=== PATIENT | female | born 1955 | race Caucasian/White ===

== ENCOUNTER → 2021-07-06 10:36 | Outpatient (BNVA) | payer OTHER, SELFPAY | PROVIDERS: PCP Student in an Organized Health Care Education/Training Program; Visit Provider Nurse Practitioner Family | DX: G47.9 Sleep disorder, unspecified (principal); R06.83 Snoring; R41.3 Other amnesia; R53.83 Other fatigue; Z79.899 Other long term (current) drug therapy | CPT/HCPCS: 99212 ==

== ENCOUNTER 2024-08-13 14:10 | Outpatient (REF) | payer OTHER, SELFPAY ==
--- OUTSIDE RECORDS SUMMARY | 2024-08-13 14:35 | XMS_ITS | Encounter Summary ---
Author Organization [employer] Address [address] [place] [address] 7 [place] [address] Care Team Providers Care Pulmonologist/Intensivist Name Role Phone Fabi Howard MD Primary Care Provider [phone] Reason for Visit * Reason Comments Med Refill Encounter Details Date Type Department Care Team ([facility] Contact Info) Description 04/07/2023 Refill [facility] [address] [place], [place] [phone] eLncho Jimenez MD [address] [place], [place] [phone] Social History Tobacco Use Types Packs/Day Years Used Date Smoking Tobacco: Never Assessed Comments Unknown Sex and Gender Information Value Date Recorded Sex Assigned at Female 04/22/2022 10:18 AM EDT Legal Sex Female 10:18 AM EDT Gender Identity Female 04/22/2022 10:18 AM EDT Sexual Orientation Straight 04/22/2022 10 :18 AM EDT documented as of this encounter Plan of Treatment Upcoming Encounters Date Type Department Care Team (Late Contact Info) Description 10/20/2024 10:45 AM EDT Office Visit [facility] [address] [place], [place] [phone] Fabi Howard MD [address] [place], [place] [phone] documented as of this encounter Visit Diagnoses Not on filedocumented in this encounter Care Teams Pulmonologist/Intensivist Relationship Specialty Start Date End Date Fabi Howard MD [address] [place] [id number] PCP - General Family Medicine 06/04/12 documented as of this encounter
--- OUTSIDE RECORDS SUMMARY | 2024-08-13 14:35 | XMS_ITS | Clinical Summary ---
Author Organization [facility] Address [address] [place] [address] Phone Care Team Providers Care School Bus Driver/Custodian Name Role Phone Fabi Howard MD Primary Care Provider [phone] Encounters Date Type Department Care Team Description 07/29/2024 2:47 PM EST - 07/29/2024 11:59 PM EST Hospital [facility]counter [facility] [address] [address] Encounter for screening mammogram for malignant neoplasm of breast Discharge Disposition: Home or Self Care from Last 3 Months Social History Tobacco Use Types Packs/Day Years Used Date Smoking Tobacco: Never Smokeless Tobacco: Never Alcohol Use Standard Drinks/Week Comments Never 0 (1 standard drink = 0.6 oz pur e alcohol) Comments No Sex and Gender Information Value Date Recorded Sex Assigned at Female 07/21/2024 10:26 AM EST Legal Sex Female 1:15 PM EST Gender Identity Female 07/21/2024 10:26 AM EST Sexual Orientation Straight 07/21/2024 10 :26 AM EST Obstetrics History Para Term AB IAB SAB Ectopic Multiple Livin g Live Births 5 Last Filed Vital Signs Vital Sign Reading Time Taken Comments Blood Pressure - - Pulse - - Temperature - - Respiratory Rate - - Oxygen Saturation - - Inhaled Oxygen Concentration - - Weight 55.3 kg (122 lb) 07/29/2024 2:54 PM EST Height 160 cm (5' 3 ) 07/29/2024 2:54 PM EST Body Mass Index 21.61 07/29/2024 2:54 PM EST Plan of Treatment Health Maintenance Due Date Last Done Comments DTaP,Tdap,and Td Vaccines (1 - Tdap) 01/22/1972 Pneumococcal Vaccine: 50+ Years (1 of 1 - PCV) 2003 Zoster Vaccines (1 of 2) 2003 Colorectal Cancer Screening: Colonoscopy 05/21/2022 Depression Screening 05/21/2022 Falls Risk Assessment 05/21/2022 Hepatitis C Screening 05/21/2022 Osteoporosis Screening (Bone Density Screening) 05/21/2022 Social Influencers of Health Screening 05/21/2022 COVID-19 Vaccine (1 - 2023-2 5 season) 2024 Influenza Vaccine (#1) 2024 Hypertension/CHF/CAD Annual BMP Blood Test 07/29/2024 Breast Cancer Screening 07/29/2026 07/29/19, 11/15/2020 Cholesterol Screening (Lipid Panel) 05/09/2027 05/09/2022 RSV Immunization Patients 60 + Years Old (1 - 1-dose 75+ series) 01/22/2028 HIB Vaccines Aged Out No longer eligi ble based on patient's age to complete this topic HPV Vaccines Aged Out No longer eligi ble based on patient's age to complete this topic Hepatitis A Vaccines Aged Out No long er eligible based on patient's age to complete this topic Hepatitis B Vaccines Aged Out No long er eligible based on patient's age to complete this topic IPV Vaccines Aged Out No longer eligi ble based on patient's age to complete this topic MMR Vaccines Aged Out No longer eligi ble based on patient's age to complete this topic Meningococcal ACWY Vaccine Aged Out N o longer eligible based on patient's age to complete this topic Meningococcal B Vacine Aged Out No lo nger eligible based on patient's age to complete this topic RSV Immunization Patients Under 20 months Aged Out No longer eligible b ased on patient's age to complete this topic Varicella Vaccines Aged Out No longer eligible based on patient's age to complete this topic Procedures Procedure Name Priority Date/Time Associated Diagnosis Comments MG MAMMO DIGITAL SCREENING W LM BILAT Routine 07/29/2024 3:04 PM EST Encounter for screening mammogram for malignant neoplasm of breast from Last 3 Months Results * MG Mammo Digital Screening w Lm bilat (07/29/2024 3:04 PM EST) Anatomical Region Laterality Modality Breast Bilateral Mammography 07/29/2024 3:35 PM EST Impressions 07/29/2024 3:40 PM EST No evidence of breast malignancy. BI-RADS CATEGORY: 1 - NEGATIVE RECOMMENDATION: Screening bilateral mammogram is recommended in 1 year. Mammo Location: [facility] , [address] [place] [address], [address], . -------- FINAL REPORT -------- Dictated By: Maranda Manjarrez Dictated Date: 07/29/2024 15:35 ET Assigned Physician: Maranda Manjarrez Reviewed and Electronically Signed By: Maranda Manjarrez Signed Date: 07/29/2024 15:40 ET Workstation ID: [id number] Transcribed By: Self Edit Transcribed Date: 07/29/2024 15:35 ET Narrative 07/29/2024 3:40 PM EST CLINICAL: 69 years old, Female, routine annual exam. COMPARISON: 11/15/2020 ?? TECHNIQUE: Bilateral MLO and CC views were obtained digitally with 3-D mammogram (digital breast tomosynthesis). Computer-aided detection was utilized in evaluation of this exam (CAD). FINDINGS: There is no evidence of suspicious mass or architectural distortion. ??No worrisome calcifications are evident. ??There has been no significant change from prior exam(s). ?? BREAST DENSITY: B - There are scattered areas of fibroglandular density. Procedure Note Maranda Manjarrez MD - 07/29/2024 CLINICAL: 69 years old, Female, routine annual exam. COMPARISON: 11/15/2020 TECHNIQUE: Bilateral MLO and CC views were obtained digitally with 3-Dmammogram (digital breast tomosynthesis). Computer-aided detection wasutilized in evaluation of this exam (CAD). FINDINGS: There is no evidence of suspicious mass or architectural distortion. Noworrisome calcifications are evident. There has been no significantchange from prior exam(s). BREAST DENSITY: B - There are scattered areas of fibroglandular density. IMPRESSION: No evidence of breast malignancy. BI-RADS CATEGORY: 1 - NEGATIVE RECOMMENDATION: Screening bilateral mammogram is recommended in 1 year. Mammo Location: [facility] , [address] [place] [address], [id number], . -------- FINAL REPORT -------- Dictated By: Maranda Manjarrez Dictated Date: 07/29/2024 15:35 ET Assigned Physician: Maranda Manjarrez Reviewed and Electronically Signed By: Maranda Manjarrez Signed Date: 07/29/2024 15:40 ET Workstation ID: [id number] Transcribed By: Self Edit Transcribed Date: 07/29/2024 15:35 ET Fabi Howard MD IMG BI PROCEDURES Final Result from Last 3 Months Insurance MEDICAID - [place] [facility] Member Subscriber Plan / Payer (Ef fective 2024-Present) Name:Daniela Ruby Relation to Subscriber:Self Name:Daniela Ruby Payer ID:[id number] Group ID:[id number] Type:Not on file Address: [address] [place] [address] Care Teams School Bus Driver/Custodian Relationship Specialty Start Date End Date Fabi Howard MD [address] [place] [address] PCP - General Family Medicine 07/21/24
--- OUTSIDE RECORDS SUMMARY | 2024-08-13 14:35 | XMS_ITS | Clinical Summary ---
Author Organization [employer] Address [address] [facility] 7t [place] [address] Care Team Providers Care Cutting Table Operator Name Role Phone Fabi Howard MD Primary Care Provider [phone] Allergies Active Allergy Reactions Criticality Noted Date Comments Metoprolol Nausea 07/16/2024 Medications ferrous gluconate (Fergon) 324 (38 Fe) MG tablet TAKE 1 TABLET POR VIA ORAL BEFORE BEDTIME 90 tablet 1 10/16/19 23 Active lisinopril 10 MG tablet Take 1 tablet by mouth at bed time. 07/24/19 21 Active [facility] Oyster Shell Calcium-Vit D 500-3.125 MG-MCG tablet TOME KAYLAH TABLETA TODOS [place] PADILLA EN LA MANANA 90 tablet 3 04/16/20 23 Active meclizine (Antivert) 12.5 MG tabletIndicati ons:Vertigo TOME KAYLAH TABLETA TODOS [place] 90 tablet 3 09/12/19 24 Active omeprazole (PriLOSEC) [address] capsule TAKE 1 CAPSULE BY MOUTH BEFORE A MEAL 90 capsule 1 03/23/20 24 Active aspirin (Aspirin Low Dose) 81 MG EC tablet TAKE 1 TABLET BY MOUTH EVERY DAY 90 tablet 1 05/19/20 24 Active atenolol (Tenormin) 25 MG tablet Take 1 tablet (25 mg) by mouth Once per day. 90 tablet 3 07/16/19 25 026 Active ibuprofen 600 MG tablet TOME KAYLAH TABLETA ANNIE VECES AL DIANA CUANDO SEA NECESARIO PARA DOLOR 90 tablet 1 08/13/19 25 Active metoprolol succinate XL (Toprol XL) 50 MG 24 hr tablet Take 1 tablet (50 mg) by mouth Once per day. Do not crush or chew. 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 ) 06/21/2024 Refill [facility] [address] [place] [address] Fabi Howard MD 06/18/2024 Telephone [facility] [address] [place] [address] Fabi Howard MD no show 06/11/2024 11:15 AM EST Office Visit [facility] [address] [place] [address] Patricia Culver MD Primary hypertension (Primary Dx); Impacted cerumen of right ear 06/11/2024 Travel 06/10/2024 Telephone [facility] [address] [place] [address] Fabi Howard MD Nurse Triage 05/19/2024 Refill [facility] [address] [place] [address] Fabi Howard MD from Last 3 Months Social History Tobacco Use Types Packs/Day Years Used Date Smoking Tobacco: Never Passive Smoke Exposure: Never Smokeless Tobacco: Never Tobacco Cessation:Counseling Given: Not Answered Alcohol Use Standard Drinks/Week Comments Never 0 (1 standard drink = 0.6 oz pur e alcohol) Housing Stability Answer Date Recorded What is your housing situation today? I have kranthi lang 07/07/[address] you li ve. Do you have problems with any of the following? None of the above 07/07/2024 Food Insecurity Answer Date Recorded Within the past 12 months, y ou worried that your food would run out before you got money to buy more: Never True 07/07/2024 Within the past 12 months,th e food you bought just didn't last and you didn't have enough money to get more: Never True Transportation Answer Date Recorded In the past 12 months, has l ack of transportation kept you from medical appts, meetings, work or from getting things needed for daily living? No 07/07/2024 Utilities Answer Date Recorded In the past 12 months, has t he electric, gas, oil or water company threatened to shut off services in your home? No 07/07/2024 Internet Access Answer Date Recorded Internet Access Q1 Yes 07/07/2024 Internet Access Q2 Not on file 07/07/2024 Comments Unknown Sex and Gender Information Value Date Recorded Sex Assigned at Female 04/22/2022 10:18 AM EDT Legal Sex Female 10:18 AM EDT Gender Identity Female 04/22/2022 10:18 AM EDT Sexual Orientation Straight 04/22/2022 10 :18 AM EDT Last Filed Vital Signs Vital Sign Reading Time Taken Comments Blood Pressure 180/80 06/11/2024 11:24 AM EST Pulse 74 06/11/2024 11:24 AM EST Temperature 37.1 ??C (98.7 ??F) 06/11/2024 11:[address] Respiratory Rate 16 06/11/2024 11:24 AM EST Oxygen Saturation 98% 06/11/2024 11:24 AM EST Inhaled Oxygen Concentration - - Weight 56.7 kg (125 lb) 06/11/2024 11:24 AM EST Height 154.9 cm (5' 1 ) 06/11/2024 11:24 AM EST Body Mass Index 23.62 06/11/2024 11:24 AM EST Plan of Treatment Upcoming Encounters Date Type Department Care Team (Late st Contact Info) Description 10/20/2024 10:45 AM EDT Office Visit [facility] [address] [facility] [place] [address] Fabi Howard MD [address] [place] [address] Health Maintenance Due Date Last Done Comments CT Colonography 1953 Depression Screening 1953 FIT 1953 FOBT 1955 Sigmoidoscopy 1955 Hepatitis C Screening 1971 DTaP/Tdap/Td Vaccines (1 - Tdap) 01/22/1972 Pneumococcal Vaccine: 50+ Years (1 of 1 - PCV) 2003 Zoster Vaccines (1 of 2) 2003 Colonoscopy 01/29/2023 01/29/2013 COVID-19 Vaccine (1 - 2023-2 5 season) 2024 Influenza Vaccine (#1) 2024 Tobacco Screening 06/11/2025 06/11/2024 SDOH Screening 07/07/2025 07/07/2024 Alcohol/Substance Use Screening 07/16/2025 07/16/2024 Mammogram 07/29/2026 07/29/2024 Lipid Panel 05/09/2027 05/09/2022, 06/06/2021 Colorectal Cancer Screening 07/28/2027 FIT DNA/Cologuard 07/28/2027 07/28/2024 RSV Patients and Patients Aged 60 years or older (1 - 1-dose 75+ series) 01/22/2028 HIB [...] patient's age to complete this topic Meningococcal Vaccine Aged Out No felicia kj eligible based on patient's age to complete this topic RSV under 20 months Aged Out No longe r eligible based on patient's age to complete this topic Rotavirus Vaccines Aged Out No longer eligible based on patient's age to complete this topic Procedures Procedure Name Priority Date/Time Associated Diagnosis Comments BI MAMMOGRAM SCREENING TOMOSYNTHESIS BILATERAL Routine 07/29/2024 Encounter for screening mammogram for breast cancer LAB COLOGUARD?? COLON CANCER SCREEN Routine 07/28/2024 2:50 PM EST Encounter for screening for malignant neoplasm of colon LIPID PANEL, STANDARD Routine 05/09/2022 11:34 AM EST HM COLONOSCOPY Routine 01/29/2013 from Last 3 Months or Most Recently Relevant to Health Maintenance Results * BI Mammogram Screening Tomosynthesis Bilateral (07/29/2024) Anatomical Region Laterality Modality Breast Bilateral Mammography Fabi Howard MD [facility] [place]EDURES Final Result * Cologuard?? colon cancer screening (07/28/2024 2:50 PM EST) Cologuard Result Negative Negative 08/07/19 12:03 PM EST [employer] (CLIA #:[id number]) Comment: NEGATIVE TEST RESULT. A negative Cologuard result indicates a low likelihood that a colorectal cancer (CRC) or advanced adenoma (adenomatous polyps with more advanced pre-malignant features) ??is present. The chance that a person with a negative Cologuard test has a colorectal cancer is less than 1 in 1500 (negative predictive value >99.9%) or has an ??advanced adenoma is less than ??5.3% (negative predictive value 94.7%). These data are based on a prospective cross-sectional study of 10,000 individuals at average risk for colorectal cancer who were screened with both Cologuard and colonoscopy. (Ho Pollard al, N Engl J Med 2014;370(14):1286- 1297) The normal value (reference range) for this assay is negative. COLOGUARD RE-SCREENING RECOMMENDATION: Periodic colorectal cancer screening is an important part of preventive healthcare for asymptomatic individuals at average risk for colorectal cancer. ??Following a negative Cologuard result, the [place] [employer] Society and U.S. Multi-Society Task Force screening guidelines recommend a Cologuard re-screening interval of 3 years. References: [place] [employer] Guideline for Colorectal Cancer Screening: https://www.cancer.org/cancer/tbmca-eqyrkh-wgrhje/oumlkxgix-aodsbhauh-ybmhlut/ac s-rec ommendations.html.; Eddie DK, Marcelle CR, Laurel AlfaroK, Colorectal Cancer Screening: Recommendations for Physicians and Patients from the U.S. Multi-Society Task Force on Colorectal Cancer Screening , Am J Gastroenterology 2017; 112:1783-1875. TEST DESCRIPTION: Composite algorithmic analysis of stool DNA-biomarkers with hemoglobin immunoassay. ?? Quantitative values of individual biomarkers are not reportable and are not associated with individual biomarker result reference ranges. Cologuard is intended for colorectal cancer screening of adults of either sex, 45 years or older, who are at average-risk for colorectal cancer (CRC). Cologuard has been approved for use by the U.S. FDA. The performance of Cologuard was established in a cross sectional study of average-risk adults aged 50-84. Cologuard performance in patients ages 45 to 49 years was estimated by sub-group analysis of near-age groups. Colonoscopies performed for a positive result may find as the most clinically significant lesion: colorectal cancer [4.0%], advanced adenoma (including sessile serrated polyps greater than or equal to 1cm diameter) [20%] or non- advanced adenoma [31%]; or no colorectal neoplasia [45%]. These estimates are derived from a prospective cross-sectional screening study of 10,000 individuals at average risk for colorectal cancer who were screened with both Cologuard and colonoscopy. (Ho Pollard al, N Engl J Med 2014;370(14):7859-7975.) Cologuard may produce a false negative or false positive result (no colorectal cancer or precancerous polyp present at colonoscopy follow up). A negative Cologuard test result does not guarantee the absence of CRC or advanced adenoma (pre-cancer). The current Cologuard screening interval is every 3 years. ([place] [employer] and U.S. Multi-Society Task Force). Cologuard performance data in a 10,000 patient pivotal study using colonoscopy as the reference method can be accessed at the following location: www.[employer] Expert.[employer]/results. Additional description of the Cologuard test process, warnings and precautions can be found at www.L[employer] Reward[employer] Managementrd.[employer]. Stool specimen (specimen) 07/28/2024 2:50 PM EST 07/30/2024 11:13 AM EST Fabi Howard MD LAB MOLECULAR DIAGNOSTICS ORDERA BLESmitha Final Result [employer] [facility] (CLIA #:[id number]) [address] [place] [address], * (ABNORMAL) LIPID PANEL, STANDARD (05/09/2022 11:34 AM EST) Chol/HDLC Ratio 2.9 <5.0 (calc) CONVERTED LEGACY LABS Cholesterol, Total 235(H) <200 mg/dL CONVERTED [facility] HDL Cholesterol 80 > OR = 50 mg/dL [facility] LDL Cholesterol 136(H) mg/dL (calc) [facility] Comment: Reference range: <100 ?? Desirable range <100 mg/dL for primary prevention; ?? <70 mg/dL for patients with CHD or diabetic patients ?? with > or = 2 CHD risk factors. ?? LDL-C is now calculated using the Douglas ?? calculation, which is a validated novel method providing ?? better accuracy than the Friedewald equation in the ?? estimation of LDL-C. ?? Gage DRIVER et al. DELIA. 2013;310(19): 9148-3845 ?? (http://education.Zooomr.[employer]/faq/SRK224) Non-HDL Cholesterol 155(H) <130 mg/dL (calc) CONVERT[facility]GAC[facility] Comment: For patients with diabetes plus 1 major ASCVD risk ?? factor, treating to a non-HDL-C goal of <100 mg/dL ?? (LDL-C of <70 mg/dL) is considered a therapeutic ?? option. Triglycerides 86 <150 mg/dL CONVE RTED LEGACY LABS 05/09/2022 11:3 4 AM EST Fabi Howard MD LAB BLOOD ORDERABLES Final Resul t CONVERTED LEGACY LABS * Hm Colonoscopy (01/29/2013) Colonoscopy Normal Normal Historical Provider HEALTH MAINTENANCE Final Result from Last 3 Months or Most Recently Relevant to Health Maintenance [place] [address] - [employer] Care Teams Cutting Table Operator Relationship Specialty Start Date End Date Fabi Howard MD [address] [place] [id number] PCP - General Family Medicine 06/04/12
--- OUTSIDE RECORDS SUMMARY | 2024-08-13 14:35 | XMS_ITS | Encounter Summary ---
Author Organization [facility] Address [address] [place] [address] Care Team Providers Care Lecturer In Computer Science Name Role Phone Fabi Howard MD Primary Care Provider Reason for Referral * Imaging (Routine) - Pending Review Specialty Diagnoses / Procedures Referred By Mac george Referred To Contact Radiology Diagnoses Encounter for screening mammogram for malignant neoplasm of breast Procedures MG Mammo Digital Screening w Fabi Clifton MD [address] [place] [address] Phone: tel: fax: [address] [address] Phone: tel: Referral ID Status Reason Start Date Expiration Date V isits Requested Visits Authorized [id number] Pending Review 07/18/2024 07/18/2025 1 1 Reason for Visit * Imaging (Routine) - Pending Review Specialty Diagnoses / Procedures Referred By Mac george Referred To Contact Radiology Diagnoses Encounter for screening mammogram for malignant neoplasm of breast Procedures MG Mammo Digital Screening w Fabi Clifton MD [address] [place] [address] Phone: tel: fax: [address] [address] Phone: tel: Referral ID Status Reason Start Date Expiration Date V isits Requested Visits Authorized [id number] Pending Review 07/18/2024 07/18/2025 1 1 Encounter Details Date Type Department Care Team (Latest Contact Info) Description 07/29/2024 2:47 PM EST - 07/29/2024 11:59 PM EST Hospital Encounter [facility] [address] [place] [address] Encounter for screening mammogram for malignant neoplasm of breast Discharge Disposition: Home or Self Care Social History Tobacco Use Types Packs/Day Years [...] Orientation Straight 07/21/2024 10 :26 AM EST documented as of this encounter Last Filed Vital Signs Vital Sign Reading Time Taken Comments Blood Pressure - - Pulse - - Temperature - - Respiratory Rate - - Oxygen Saturation - - Inhaled Oxygen Concentration - - Weight 55.3 kg (122 lb) 07/29/2024 2:54 PM EST Height 160 cm (5' 3 ) 07/29/2024 2:54 PM EST Body Mass Index 21.61 07/29/2024 2:54 PM EST documented in this encounter Discharge Disposition Disposition Code Departure Means Destination Home or Self Care documented in this encounter Plan of Treatment Not on file documented as of this encounter Procedures Procedure Name Priority Date/Time Associated Diagnosis Comments MG MAMMO DIGITAL SCREENING W LM BILAT Routine 07/29/2024 3:04 PM EST Encounter for screening mammogram for malignant neoplasm of breast documented in this encounter Results * MG Mammo Digital Screening w Lm bilat (07/29/2024 3:04 PM EST) Anatomical Region Laterality Modality Breast Bilateral Mammography 07/29/2024 3:35 PM EST Impressions 07/29/2024 3:40 PM EST No evidence of breast malignancy. BI-RADS CATEGORY: 1 - NEGATIVE RECOMMENDATION: Screening bilateral mammogram is recommended in 1 year. Mammo Location: [facility], [address] [place], [place], [address], . -------- FINAL REPORT -------- Dictated By: Maranda Manjarrez Dictated Date: 07/29/2024 15:35 ET Assigned Physician: Maranda Manjarrez Reviewed and Electronically Signed By: Maranda Manjarrez Signed Date: 07/29/2024 15:40 ET Workstation ID: [id number] Transcribed By: Self Edit Transcribed Date: 07/29/2024 [...] year. Mammo Location: [facility], [address] [place] [address], [id number], . -------- FINAL REPORT -------- Dictated By: Maranda Manjarrez Dictated Date: 07/29/2024 15:35 ET Assigned Physician: Maranda Manjarrez Reviewed and Electronically Signed By: Maranda Manjarrez Signed Date: 07/29/2024 15:40 ET Workstation ID: [id number] Transcribed By: Self Edit Transcribed Date: 07/29/2024 15:35 ET Fabi Howard MD IMG BI PROCEDURES Final Result documented in this encounter Visit Diagnoses Diagnosis Encounter for screening mammogram for malignant neoplasm of breast documented in this encounter Care Teams Lecturer In Computer Science Relationship Specialty Start Date End Date Fabi Howard MD [address] [place] [address] PCP - General Family Medicine 07/21/24 documented as of this encounter
--- OUTSIDE RECORDS SUMMARY | 2024-08-13 14:35 | XMS_ITS | Encounter Summary ---
Author Organization [employer] Address [address] [facility] 7t [place] [address] Care Team Providers Care Cushion Filler Name Role Phone Fabi Howard MD Primary Care Provider [phone] Reason for Visit * Reason Comments Med Refill Encounter Details Date Type Department Care Team ([facility] st Contact Info) Description 08/13/2024 Refill [facility] MED & PEDS [address] [place], [place] [phone] Enriqueta Rneteria FNP [address] [place], [place] [phone] Social History Tobacco Use Types Packs/Day Years Used Date Smoking Tobacco: Never Passive Smoke Exposure: Never Smokeless Tobacco: Never Alcohol Use Standard [...] Description 10/20/2024 10:45 AM EDT Office Visit [facility] MED & PEDS [address] [place] [address] Fabi Howard MD [address] [place] [address] documented as of this encounter Visit Diagnoses Not on filedocumented in this encounter Care Teams Cushion Filler Relationship Specialty Start Date End Date Fabi Howard MD [address] [place] [address] PCP - General Family Medicine 06/04/12 documented as of this encounter
--- OUTSIDE RECORDS SUMMARY | 2024-08-13 14:35 | XMS_ITS | Encounter Summary ---
Author Organization [employer] Address [address] [facility] 7t [place] [address] Care Team Providers Care Forging Operator Name Role Phone Fabi Howard MD Primary Care Provider [phone] Encounter Details Date Type Department Care Team (Latest Contact Info) Description 07/15/2024 Travel Social History Tobacco Use Types Packs/Day Years Used Date Smoking Tobacco: Never Passive Smoke Exposure: Never Smokeless Tobacco: Never Alcohol Use Standard Drinks/Week Comments Never 0 (1 standard drink = 0.6 oz pur e alcohol) Housing Stability Answer Date Recorded What is your housing situation today? I have kranthisahil lang 07/07/[address] you [...] Description 10/20/2024 10:45 AM EDT Office Visit [facility] MED & PEDS [address] [place] [address] Fabi Howard MD [address] [place] [address] documented as of this encounter Visit Diagnoses Not on filedocumented in this encounter Care Teams Forging Operator Relationship Specialty Start Date End Date Fabi Howard MD [address] [place] [address] PCP - General Family Medicine 06/04/12 documented as of this encounter
--- OUTSIDE RECORDS SUMMARY | 2024-08-13 14:35 | XMS_ITS | Encounter Summary ---
Author Organization [facility] Address [address] [facility] 7t [place] [address] Care Team Providers Care Wooden Boat Builder Name Role Phone Fabi Howard MD Primary Care Provider [phone] Encounter Details Date Type Department Care Team (Late st Contact Info) Description 12/25/2022 Orders Only [facility] MED & PEDS [address] [place] [address] Marcy Mceknzie LPN Social History Tobacco Use Types Packs/Day Years [...] Description 10/20/2024 10:45 AM EDT Office Visit [facility] MED [facility] PED[facility] [address] [place] [address] Fabi Howard MD [address] [place] [address] documented as of this encounter Visit Diagnoses Not on filedocumented in this encounter Care Teams Wooden Boat Builder Relationship Specialty Start Date End Date Fabi Howard MD [address] [place] [address] PCP - General Family Medicine 06/04/12 documented as of this encounter
--- OUTSIDE RECORDS SUMMARY | 2024-08-13 14:35 | XMS_ITS | Encounter Summary ---
Author Organization [employer] Address [address] [facility] 7t [place] [address] Care Team Providers Care Product Management Intern Name Role Phone Fabi Howard MD Primary Care Provider [phone] Reason for Referral * Imaging (Routine) - Closed Specialty Diagnoses / Procedures Referred By Contsoraya t Referred To Contact Radiology Diagnoses Encounter for screening mammogram for breast cancer Procedures BI Mammogram Screening Tomosynthesis Bilateral Fabi Howard MD [address] [place] [address] Phone: tel: fax: [address] Phone: tel: fax: Referral ID Status Reason Start Date Expiration Date Visits Re quested Visits Authorized [id number] Closed 07/16/2024 07/16/2025 1 1 Reason for Visit * Reason Comments Hypertension Encounter Details Date Type Department Care Team (Late st Contact Info) Description 07/16/2024 11:15 AM EST Telemedicine [facility] CHC MED & PEDS [address] [place] [address] Fabi Howard MD [address] [place], [place] [phone] Primary hypertension (Primary Dx); Encounter for screening for malignant neoplasm of colon; Encounter for screening mammogram for breast cancer Social History Tobacco Use Types Packs/Day Years [...] AM EDT documented as of this encounter Progress Notes * Fabi Howard MD - 07/16/2024 11:15 AM EST Subjective Patient ID: Daniela Ruby is a 69 y.o. female who presents for Hypertension. Hypertension This is a chronic problem. The current episode started more than 1 year ago. The problem is unchanged. The problem is controlled. Pertinent negatives include no anxiety, blurred vision, chest pain, headaches, malaise/fatigue, neck pain, orthopnea, palpitations, peripheral edema, PND, shortness of breath or sweats. Review of Systems Constitutional: Negative for malaise/fatigue. Eyes: Negative for blurred vision. Respiratory: Negative for shortness of breath. Cardiovascular: Negative for chest pain, palpitations, orthopnea and PND. Musculoskeletal: Negative for neck pain. Neurological: Negative for headaches. Objective Physical Exam Psychiatric: Mood and Affect: Mood normal. Behavior: Behavior normal. Thought Content: Thought content normal. Judgment: Judgment normal. Assessment/Plan Diagnoses and all orders for this visit: Primary hypertension Comments: Stable Checks daily at home D/C metoprolol due to side effects Switched to Atenolol Maintain a low-sodium diet (less than 2 grams per day). Maintain a regular cardiovascular exercise program. Advised to maintain a low-fat, low-cholesterol diet. Counseled regarding importance of weight loss. Counseled re: potential co-morbidities including cardiovascular disease. Orders: - Basic Metabolic Panel; Future - Lipid Panel, Standard; Future - Hepatic Function Panel; Future Encounter for screening for malignant neoplasm of colon - Cologuard?? colon cancer screening Encounter for screening mammogram for breast cancer - BI Mammogram Screening Tomosynthesis Bilateral; Future Other orders - atenolol (Tenormin) 25 MG tablet; Take 1 tablet (25 mg) by mouth Once per day. documented in this encounter Plan of Treatment Upcoming Encounters Date Type Department Care Team (Late st Contact Info) Description 10/20/2024 10:45 AM EDT Office Visit [facility] CHC MED & PEDS [address] [place] [address] Fabi Howard MD [address] [place] [address] Scheduled Orders Name Type Priority Associated Diagnoses Orde r Schedule Basic Metabolic Panel Lab Routine Primary hypertension Expected: 07/16/2024 (Approximate), Expires: 07/16/2025 Lipid Panel, Standard Lab Routine Primary hypertension Expected: 07/16/2024 (Approximate), Expires: 07/16/2025 Hepatic Function Panel Lab Routine Primary hypertension Expected: 07/16/2024 (Approximate), Expires: 07/16/2025 documented as of this encounter Procedures Procedure Name Priority Date/Time Associated Diagnosis Comments BI MAMMOGRAM SCREENING TOMOSYNTHESIS BILATERAL Routine 07/29/2024 Encounter for screening mammogram for breast cancer LAB COLOGUARD?? COLON CANCER SCREEN Routine 07/28/2024 2:50 PM EST Encounter for screening for malignant neoplasm of colon documented in this encounter Results * BI Mammogram Screening Tomosynthesis Bilateral (07/29/2024) Anatomical Region Laterality Modality Breast Bilateral Mammography Fabi Howard MD IM BI PROCEDURES Final Result * Cologuard?? colon cancer screening (07/28/2024 2:50 PM EST) Cologuard Result Negative Negative 08/07/19 12:03 PM EST [employer] (CLIA #:[id number]) Comment: NEGATIVE TEST RESULT. A negative Cologuard [...] were screened with both Cologuard and colonoscopy. (Imperialrobert T. et al, N Engl J Med 2014;370(14):1286- 1297) The normal value (reference range) for this assay is negative. COLOGUARD RE-SCREENING RECOMMENDATION: Periodic colorectal cancer screening is an important part of preventive healthcare for asymptomatic individuals at average risk for colorectal cancer. ??Following a negative Cologuard result, the [place] [employer] and U.S. Multi-Society Task Force screening guidelines recommend a Cologuard re-screening interval of 3 years. References: [place] [employer] Guideline for Colorectal Cancer Screening: https://www.cancer.org/cancer/fymvd-wwprkw-nrztpr/ciamwlwor-nvjzfzcvi-dtpeszk/ac s-rec ommendations.html.; Eddie MARTINES, Marcelle CASTRO, Laurel STOVER, Colorectal Cancer Screening: Recommendations for Physicians and Patients from the U.S. Multi-Society Task Force on Colorectal Cancer Screening , Am J Gastroenterology 2017; 112:8746-2793. TEST DESCRIPTION: Composite algorithmic analysis of stool [...] screened with both Cologuard and colonoscopy. (Ho Hernández et al, N Engl J Med 2014;370(14):5447-3011.) Cologuard may produce a false negative or false positive result (no colorectal cancer or precancerous polyp present at colonoscopy follow up). A negative Cologuard test result does not guarantee the absence of CRC or advanced adenoma (pre-cancer). The current Cologuard screening interval is every 3 years. ([place] [employer] Society and U.S. Multi-Society Task Force). Cologuard performance data in a 10,000 patient pivotal study using colonoscopy as the reference method can be accessed at the following location: www.Jukely/results. Additional description of the Cologuard test process, warnings and precautions can be found at www.Brandsclubrd.com. Stool specimen (specimen) 07/28/2024 2:50 PM EST 07/30/2024 11:13 AM EST us Fabi Howard MD LAB MOLECULAR DIAGNOSTICS [facility] Final Result [facility] (CLIA #:[id number]) [place] [address], documented in this encounter Visit Diagnoses Diagnosis Primary hypertension- Primary Unspecified essential hypertension Encounter for screening for malignant neoplasm of colon Encounter for screening mammogram for breast cancer documented in this encounter Care Teams Product Management Intern Relationship Specialty Start Date End Date Fabi Howard MD [address] [place] [address] PCP - General Family Medicine 06/04/12 documented as of this encounter
--- OUTSIDE RECORDS SUMMARY | 2024-08-13 14:35 | XMS_ITS | Encounter Summary ---
Author Organization [facility] Address [address] [facility] 7t [place] [address] Care Team Providers Care Box Feeder Name Role Phone Fabi Howard MD Primary Care Provider Reason for Visit * Reason Comments Med Change Request Encounter Details Date Type Department Care Team (Late Contact Info) Description 04/17/2023 Refill [facility] MED & PEDS [address] [place] [address] Fabi Howard MD [address] [place] [address] Social History Tobacco Use Types Packs/Day Years Used Date Smoking Tobacco: Never Smokeless Tobacco: Never Alcohol Use Standard Drinks/Week Comments Never 0 (1 standard drink = 0.6 oz pur e alcohol) Comments Unknown Sex and Gender Information Value [...] Description 10/20/2024 10:45 AM EDT Office Visit [facility] MED & PEDS [address] [place] [address] Fabi Howard MD [address] [place] [address] documented as of this encounter Visit Diagnoses Not on filedocumented in this encounter Care Teams Box Feeder Relationship Specialty Start Date End Date Fabi Howard MD [address] [place] [address] PCP - General Family Medicine 06/04/12 documented as of this encounter
[2024-08-13 17:53] LABS: Alanine Aminotransferase 18 U/L (0-31); Alkaline Phosphatase 86 U/L (39-117); Anion Gap 9 (12-20); Aspartate Amino Transferase 32 U/L (5-31); Bilirubin Direct 0.2 mg/dL (0.0-0.5); Bilirubin Total 0.4 mg/dL (0.0-1.0); Blood Urea Nitrogen 15 mg/dL (9-16); Calcium 9.6 mg/dL (8.4-10.2); Carbon Dioxide 30 mmol/L (22-29); Chloride 107 mmol/L (96-108); Cholesterol 236 mg/dL (<200); Estimated Glomerular Filt Rate 56; Glucose Random 93 mg/dL (60-115); HDL Cholesterol 99 mg/dL (>40); LDL Cholesterol Calculated 126 mg/dL (<100); Potassium 5.1 mmol/L (3.3-5.1); Sodium 141 mmol/L (135-145); Total Protein 7.6 g/dL (6.5-8.0); Triglycerides 59 mg/dL (<150)
== END 2024-08-13 14:11 | disposition home or self-care (01) ==
LOC: HO.CHCLDS 14:10
PROVIDERS: Visit Provider Student in an Organized Health Care Education/Training Program
DX: I10 Essential (primary) hypertension (principal)
CPT/HCPCS: 36415; 80048; 80061; 80076

== ENCOUNTER 2025-03-10 10:38 | Outpatient (REF) | payer OTHER, SELFPAY ==
--- OUTSIDE RECORDS SUMMARY | 2025-03-10 10:45 | XMS_ITS | Encounter Summary ---
Author Organization [employer] Address 75 [facility] 7t [place] [address] Care Team Providers Care Landfill Gas Plant Field Technician Name Role Phone Bradly Alcantar CNP Primary Care Provider [phone] Reason for Referral * Imaging (Routine) - Authorized Specialty Diagnoses / Procedures Referred By Mac george Referred To Contact Cardiology Diagnoses Varicose veins of both lower extremities with pain Procedures Vascular US lower extremity venous duplex bilateral Fabi Howard MD [address] [place] [address] Phone: tel: fax: [address] Phone: tel: fax: Referral ID Status Reason Start Date Expiration Date Visits Requested Visits Authorized [id number] Authorized Perform Procedure 03/10/2025 03/10/2026 1 1 Encounter Details Date Type Department Care Team (Late st Contact Info) Description 03/10/2025 10:45 AM EDT Office Visit [facility] CHC MED & PEDS [address] [place] [address] Fabi Howard MD [address] [place] [address] Primary hypertension (Primary Dx); Hypercholesterolemia; PVD (peripheral vascular disease) (CMS/HCC); Varicose veins of both lower extremities with pain Social History Tobacco Use Types Packs/Day Years [...] AM EDT documented as of this encounter Last Filed Vital Signs Vital Sign Reading Time Taken Comments Blood Pressure 184/76 03/10/2025 10:17 AM EDT Manually checked Pulse 60 03/10/2025 10:17 AM EDT Temperature 36.7 C (98 F) 03/10/2025 10:17 AM EDT Respiratory Rate 20 03/10/2025 10:1 7 AM EDT Oxygen Saturation - - Inhaled Oxygen Concentration - - Weight 54 kg (119 lb) 03/10/2025 10:17 AM EDT Height 154.9 cm (5' 1 ) 03/10/2025 10:1 7 AM EDT Body Mass Index 22.48 03/10/2025 10:17 AM EDT documented in this encounter Progress Notes * Fabi Howard MD - 03/10/2025 10:45 AM EDT Subjective Patient ID: Daniela Ruby is a 70 y.o. female who presents for No chief complaint on file.. Edema Presents with recurrent edema. The onset of the episode was gradual. These episodes happen throughout the day. The problem presents itself constantly. The problem has been gradually worsening. The edema is present on the both side(s). Pertinent negative symptoms include no chest pain and no palpitations. Past medical history is significant for varicose veins. Treatments tried include nothing. Review of Systems Constitutional: Negative. Respiratory: Negative. Negative for shortness of breath. Cardiovascular: Negative for chest pain and palpitations. Gastrointestinal: Negative. Genitourinary: Negative. Musculoskeletal: Negative for neck pain. Neurological: Negative for headaches. Objective Physical Exam Constitutional: Appearance: Normal appearance. Cardiovascular: Rate and Rhythm: Normal rate and regular rhythm. Pulses: Normal pulses. Heart sounds: Normal heart sounds. Pulmonary: Effort: Pulmonary effort is normal. Neurological: Mental Status: She is alert. Assessment/Plan Diagnoses and all orders for this visit: Primary hypertension Comments: Elevated HCTZ added to the regimen Maintain a low-sodium diet (less than 2 grams per day). Maintain a regular cardiovascular exercise program. Orders: - Basic Metabolic Panel; Future - Hepatic Function Panel; Future - Lipid Panel, Standard; Future Hypercholesterolemia Comments: Labs ordered today Advised to maintain a low-fat, low-cholesterol diet. Orders: - Basic Metabolic Panel; Future - Hepatic Function Panel; Future - Lipid Panel, Standard; Future PVD (peripheral vascular disease) (CMS/HCC) Comments: Advised leg elevation Low salt diet and compression stockings Varicose veins of both lower extremities with pain Comments: US ordered referred to Vascular surgeon Orders: - Vascular US lower extremity venous duplex bilateral; Future Other orders - hydroCHLOROthiazide (HYDRODiuril) 25 MG tablet; Take 1 tablet (25 mg) by mouth Once per day. documented in this encounter Plan of Treatment Upcoming Encounters Date Type Department Care Team ([facility] st Contact Info) Description 03/24/2025 1:00 PM EDT Clinical Support [facility] MED & PEDS [address] [place] [address] Scheduled Orders Name Type Priority Associated Diagnoses Orde r Schedule Basic Metabolic Panel Lab Routine Primary hypertension Hypercholesterolemia Expected: 03/10/2025 (Approximate), Expires: 03/10/2026 Hepatic Function Panel Lab Routine Primary hypertension Hypercholesterolemia Expected: 03/10/2025 (Approximate), Expires: 03/10/2026 Lipid Panel, Standard Lab Routine Primary hypertension Hypercholesterolemia Expected: 03/10/2025 (Approximate), Expires: 03/10/2026 documented as of this encounter Visit Diagnoses Diagnosis Primary hypertension- Primary Unspecified essential hypertension Hypercholesterolemia Pure hypercholesterolemia PVD (peripheral vascular disease) ([facility]) Unspecified peripheral vascular disease Varicose veins of both lower extremities with pain documented in this encounter Care Teams Landfill Gas Plant Field Technician Relationship Specialty Start Date End Date Bradly Alcantar CNP [address] [place] [address] PCP - General Family Medicine 03/10/25 documented as of this encounter
--- OUTSIDE RECORDS SUMMARY | 2025-03-10 12:47 | XMS_ITS | Encounter Summary ---
Author Organization [employer] Address [address] [facility] 7t [place] [address] Care Team Providers Care Roller Checker Name Role Phone OrtizBradly PRINCESS Primary Care Provider [phone] Encounter Details Date Type Department Care Team (Latest Contact Info) Description 03/10/2025 Travel Social History Tobacco Use Types Packs/Day [...] Upcoming Encounters Date Type Department Care Team ([facility] st Contact Info) Description 03/24/2025 1:00 PM EDT Clinical Support [facility] MED & PEDS [address] [place] [address] documented as of this encounter Visit Diagnoses Not on filedocumented in this encounter Care Teams Roller Checker Relationship Specialty Start Date End Date Bradly Alcantar CNP [address] [place] [address] PCP - General Family Medicine 03/10/25 documented as of this encounter
--- OUTSIDE RECORDS SUMMARY | 2025-03-10 12:47 | XMS_ITS | Encounter Summary ---
Author Organization [employer] [facility] Address [address] [facility] 7t [place] [address] Care Team Providers Care Security Professional Name Role Phone Fabi Howard MD Primary Care Provider [phone] Bradly Alcantar CNP Primary Care Provider [phone] Encounter Details Date Type Department Care Team (Late st Contact Info) Description 12/25/2022 Orders Only [facility] MED & PEDS [address] [place] [address] Marcy Mckenzie LPN Social History Tobacco Use Types Packs/Day [...] Care Team (Late st Contact Info) Description 03/24/2025 1:00 PM EDT Clinical Support [facility] MED & PEDS [address] [place] [address] documented as of this encounter Visit Diagnoses Not on filedocumented in this encounter Care Teams Security Professional Relationship Specialty Start Date End Date Fabi Howard MD [address] [place] [address] PCP - General Family Medicine 06/04/12 03/09/25 Bradly Alcantar CNP [address] [place] [address] PCP - General Family Medicine 03/10/25 documented as of this encounter
--- OUTSIDE RECORDS SUMMARY | 2025-03-10 12:47 | XMS_ITS | Clinical Summary ---
Author Organization [facility] Address [address] [place] [address] Phone Care Team Providers Care Dry Starch Operator Name Role Phone Fabi Howard MD Primary Care Provider [phone] Social History Tobacco Use Types Packs/Day Years [...] 2) 2003 Colorectal Cancer Screening: Colonoscopy 05/21/2022 Falls Risk Assessment 05/21/2022 Hepatitis C Screening 05/21/2022 Medicare Annual Wellness Visit 05/21/2022 Osteoporosis Screening (Bone Density Screening) 05/21/2022 Social Influencers of Health Screening 05/21/2022 Depression Screening 06/23/2024 Hypertension/CHF/CAD Annual BMP Blood Test 07/29/2024 COVID-19 Vaccine (1 - 2023-2 5 season) 2025 Influenza Vaccine (#1) 2025 Breast Cancer Screening 07/29/2026 07/29/19 25, 11/15/2020 Cholesterol Screening (Lipid Panel) 05/09/2027 05/09/2022 RSV Immunization Adult Patients (1 - 1-dose 75+ series) 01/22/2028 HIB [...] age to complete this topic Meningococcal B Vaccine Aged Out No l onger eligible based on patient's age to complete [...] neoplasm of breast from Last 3 Months or Most Recently Relevant to Health Maintenance Results * MG Mammo Digital Screening w Lm bilat (07/29/2024 3:04 PM EST) Anatomical Region Laterality Modality Breast Bilateral Mammography 07/29/2024 3:35 PM EST Impressions 07/29/2024 3:40 PM EST No evidence of breast malignancy. BI-RADS CATEGORY: 1 - NEGATIVE RECOMMENDATION: Screening bilateral mammogram is recommended in 1 year. Mammo Location: [facility], [address], [place], [address], . -------- FINAL REPORT -------- Dictated By: Maranda Manjarrez Dictated Date: 07/29/2024 15:35 ET Assigned Physician: Maranda Manjarrez Reviewed and Electronically Signed By: Maranda Manjarrez Signed Date: 07/29/2024 15:40 ET Workstation ID: [id number] Transcribed By: Self Edit Transcribed Date: 07/29/2024 15:35 ET Narrative 07/29/2024 3:40 PM EST CLINICAL: 69 years old, Female, routine annual exam. COMPARISON: 11/15/2020 TECHNIQUE: Bilateral MLO and CC views were obtained digitally with 3-D mammogram (digital breast tomosynthesis). Computer-aided detection was utilized in evaluation of this exam (CAD). FINDINGS: There is no evidence of suspicious mass or architectural distortion. No worrisome calcifications are evident. There has been no significant change from prior exam(s). BREAST DENSITY: B - [...] year. Mammo Location: [facility], [address] [place] [address], [address], . -------- FINAL REPORT -------- Dictated By: Maranda Manjarrez Dictated Date: 07/29/2024 15:35 ET Assigned Physician: Maranda Manjarrez Reviewed and Electronically Signed By: Loki, Maranda Signed Date: 07/29/2024 15:40 ET Workstation ID: [id number] Transcribed By: Self Edit Transcribed Date: 07/29/2024 15:35 ET Fabi Howard MD IMG BI PROCEDURES Final Result from Last 3 Months or Most Recently Relevant to Health Maintenance Insurance [place] [facility] Member Subscriber Plan / Payer (Ef fective 2024-Present) Name:Daniela Ruby Relation to Subscriber:Self Name:Daniela Ruby Payer ID:[id number] Group ID:[id number] Type:Not on file Address: [address] [place] [address] [employer] MEDICARE Member Subscriber Plan / Payer (Ef fective 2024-Present) Name:Daniela Ruby Relation to Subscriber:Self Name:Daniela Ruby Payer ID:[id number] Group ID:[id number] Type:Not on file Address: [address] [place] [address] Care Teams Dry Starch Operator Relationship Specialty Start Date End Date Fabi Howard MD [address] [place] [phone] PCP - General Family Medicine 07/21/24
--- OUTSIDE RECORDS SUMMARY | 2025-03-10 12:47 | XMS_ITS | Encounter Summary ---
Author Organization [employer] [facility] Address [address] [facility] 7t [place] [address] Care Team Providers Care Contract Forester Name Role Phone Fabi Howard MD Primary Care Provider Bradly Alcantar CNP Primary Care Provider [phone] Reason for Visit * Reason Comments Med Change Request Encounter Details Date Type Department Care Team ([facility] Contact Info) Description 04/17/2023 Refill [facility] [address] [place] [address] Fabi Howard MD [address] [place] [address] Social History Tobacco Use Types Packs/Day Years [...] Upcoming Encounters Date Type Department Care Team ([facility] Contact Info) Description 03/24/2025 1:00 PM EDT Clinical Support [facility] [address] [place] [address] documented as of this encounter Visit Diagnoses Not on filedocumented in this encounter Care Teams Contract Forester Relationship Specialty Start Date End Date Fabi Howard MD [address] [place] [address] PCP - General Family Medicine 06/04/12 03/09/25 Bradly Alcantar CNP [address] [place] [phone] PCP - General Family Medicine 03/10/25 documented as of this encounter
--- OUTSIDE RECORDS SUMMARY | 2025-03-10 12:48 | XMS_ITS | Encounter Summary ---
Author Organization [employer] [facility] Address [address] [facility] [address] [place] [address] Care Team Providers Care Grid Casting Machine Operator Helper Name Role Phone Fabi Howard MD Primary Care Provider [phone] Bradly Alcantar CNP Primary Care Provider [phone] Reason for Visit * Reason Comments Med Refill Encounter Details Date Type Department Care Team (Late st Contact Info) Description 04/07/2023 Refill [facility] [address] [place], [place] [phone] Lencho Jimenez MD [address] [place] [address] Social History Tobacco Use Types Packs/Day Years [...] Description 03/24/2025 1:00 PM EDT Clinical Support [facility] [address] [place] [address] documented as of this encounter Visit Diagnoses Not on filedocumented in this encounter Care Teams Grid Casting Machine Operator Helper Relationship Specialty Start Date End Date Fabi Howard MD [address] [place] [phone] PCP - General Family Medicine 06/04/12 03/09/25 Bradly Alcantar CNP [address] [place] [address] PCP - General Family Medicine 03/10/25 documented as of this encounter
--- OUTSIDE RECORDS SUMMARY | 2025-03-10 12:48 | XMS_ITS | Clinical Summary ---
Author Organization [email or web address] Address [address] [facility] 7t [place] [address] Care Team Providers Care Neonatal Nurse Name Role Phone Bradly Alcantar CNP Primary Care Provider [phone] Allergies Active Allergy Reactions Criticality Noted Date Comments Metoprolol Nausea 07/16/2024 Medications ferrous gluconate (Fergon) 324 (38 Fe) MG tablet TAKE 1 TABLET POR VIA ORAL BEFORE BEDTIME 90 tablet 1 3 Active lisinopril 10 MG tablet Take 1 tablet by mouth at bed time. 1 Active [facility] Oyster Shell Calcium-Vit D 500-3.125 MG-MCG tablet TOME KAYLAH TABLETA TODOS LOS PADILLA EN LA MANANA 90 tablet 3 3 Active omeprazole (PriLOSEC) [address] capsule TAKE 1 CAPSULE BY MOUTH BEFORE A MEAL 90 capsule 1 4 Active atenolol (Tenormin) 25 MG tablet Take 1 tablet (25 mg) by mouth Once per day. 90 tablet 3 5 07/16/19 26 Active meclizine (Antivert) 12.5 MG tabletIndicatio ns:Vertigo TOME 1 TABLETA POR VIA ORAL TODOS [place] PADILLA 90 tablet 3 5 Active aspirin 81 MG EC tablet TAKE 1 TABLET BY MOUTH EVERY DAY 90 tablet 1 5 Active ibuprofen 600 MG tablet TOME KAYLAH TABLETA ANNIE VECES AL DIANA CUANDO SEA NECESARIO PARA DOLOR 90 tablet 5 Active hydroCHLOROthia zide (HYDRODiuril) 25 MG tablet Take 1 tablet (25 mg) by mouth Once per day. 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 Encounters Date Type Department Care Team Description 03/10/2025 10:45 AM EDT Office Visit [facility] [address] [place] [address] Fabi Howard MD Primary hypertension (Primary Dx); Hypercholesterolemia; PVD (peripheral vascular disease) (CMS/HCC); Varicose veins of both lower extremities with pain 03/10/2025 Travel 03/08/2025 Telephone [facility] [address] [place] [address] Fabi Howard MD Nurse Triage 01/13/2025 Telephone [facility] [address] [place] [address] Fabi Howard MD No Show 01/05/2025 Patient Outreach [facility] [address] [place] [address] Fabi Howard MD Pre-visit Planning (SDOH screening completed on 07/07/24 ) 01/02/2025 Refill [facility] [address] [place] [address] Valery Escobedo MD from Last 3 Months Social History [...] 03/10/2025 10:1 7 AM EDT Oxygen Saturation 98% 06/11/2024 11: 24 AM EST Inhaled Oxygen Concentration - - Weight 54 kg (119 lb) 03/10/2025 10:17 AM EDT Height 154.9 cm (5' 1 ) 03/10/2025 10:1 7 AM EDT Body Mass Index 22.48 03/10/2025 10:17 AM EDT Plan of Treatment Upcoming Encounters Date Type Department Care Team (Late st Contact Info) Description 03/24/2025 1:00 PM EDT Clinical Support [facility] [address] [place] [address] Health Maintenance Due Date Last Done Comments CT Colonography 1953 Depression Screening 1953 FIT 1955 Sigmoidoscopy 1953 Hepatitis C Screening 1971 DTaP/Tdap/Td Vaccines (1 - Tdap) 01/22/1972 Pneumococcal Vaccine: 50+ Years (1 of 1 - PCV) 2003 Zoster Vaccines (1 of 2) 2003 Colonoscopy 01/29/2023 01/29/2013 COVID-19 Vaccine (1 - 2023-2 5 season) 2025 Influenza Vaccine (#1) 2025 SDOH Screening 07/07/2025 07/07/2024 FOBT 07/28/2025 07/28/2024 Alcohol/Substance Use Screening 03/10/2026 03/10/2025 Tobacco Screening 03/10/2026 03/10/2025 Mammogram 07/29/2026 07/29/2024, 07/29/2024, 07/29/2024 Colorectal Cancer Screening 07/28/2027 FIT DNA/Cologuard 07/28/2027 07/28/2024 RSV Patients and Patients Aged 60 years or older (1 - 1-dose 75+ series) 01/22/2028 Lipid Panel 08/13/2029 08/13/2024, 05/09/2022, 06/06/2021 HIB Vaccines Aged Out No longer eligi [...] Procedure Name Priority Date/Time Associated Diagnosis Comments LIPID PANEL, STANDARD Routine 08/13/2024 2:11 PM EST Primary hypertension BI MAMMOGRAM SCREENING TOMOSYNTHESIS BILATERAL Routine 07/29/2024 Encounter for screening mammogram for breast cancer LAB COLOGUARD COLON CANCER SCREEN Routine 07/28/2024 2:50 PM EST Encounter for screening for malignant neoplasm of colon HM COLONOSCOPY Routine 01/29/2013 from Last 3 Months or Most Recently Relevant to Health Maintenance Results * (ABNORMAL) Lipid Panel, Standard (08/13/2024 2:11 PM EST) Triglycerides 59 <150 mg/dL [facility] Comment:Desirable Triglyceri de: less than 150 mg/dLBorderline High Triglyceride 150-199 mg/dLHigh Triglyceride: 200-499 mg/dLVery High Triglyceride: greater than or equal to 5OO mg/dL Cholesterol 236(H) <200 mg/dL [facility] Comment:Desirable Cholestero l: less than 200 mg/dLBorderline High Cholesterol: 200-239 mg/dLHigh Cholesterol: greater than 239 mg/dL LDL Cholesterol Calculated 126(H) <100 mg/dL [facility] Comment:Desirable LDL: less than 100 mg/dLNear Optimal/Above Optimal LDL: 110- 129 mg/dLBorderline High LDL: 130-159 mg/dLHigh LDL: 160-189 mg/dLVery High LDL: greater than or equal to 190 mg/dL HDL Cholesterol 99 >40 mg/dL [facility] Comment:Desirable HDL: great er than 40 mg/dL Note: This HDL assay may give artificially low results in patients with liver disease. Blood Venous blood specimen / Unknown 08/13/2024 2:11 PM EST 08/13/2024 5:30 PM EST Fabi Howard MD LAB BLOOD ORDERABLES Final Resul t [facility] [address] [place] [phone] * BI Mammogram Screening Tomosynthesis Bilateral (07/29/2024) Anatomical Region Laterality Modality Breast Bilateral Mammography Fabi Howard MD IMG BI PROCEDURES Final Result * Cologuard?? colon cancer screening (07/28/2024 2:50 PM EST) Cologuard Result Negative Negative 08/07/19 12:03 PM EST [facility] (CLIA #:[id number]) Comment: NEGATIVE TEST RESULT. A negative Cologuard result indicates a low likelihood that a colorectal cancer (CRC) or advanced adenoma (adenomatous polyps with more advanced pre-malignant features) is present. The chance that a person with a negative Cologuard test has a colorectal cancer is less than 1 in 1500 (negative predictive value >99.9%) or has an advanced adenoma is less than 5.3% (negative predictive value 94.7%). These data are based on a prospective cross-sectional study of 10,000 individuals at average risk for colorectal cancer who were screened with both Cologuard and colonoscopy. (Ho Hernández et al, N Engl J Med 2014;370(14):8159-8936) The normal value (reference range) for this assay is negative. COLOGUARD RE-SCREENING RECOMMENDATION: Periodic colorectal cancer screening is an important part of preventive healthcare for asymptomatic individuals at average risk for colorectal cancer. Following a negative Cologuard result, the [place] [employer] and U.S. Multi-Society Task Force screening guidelines recommend a Cologuard re-screening interval of 3 years. References: [place] [employer] Guideline for Colorectal Cancer Screening: https://www.cancer.org/cancer/dwxie-ridxfh-uttnux/emsshuujl-apwcbvzul-djeubmb/ac s-rec ommendations.html.; Eddie DK, Marcelle CASTRO, Laurel AlfaroK, Colorectal Cancer Screening: Recommendations for Physicians and Patients from the U.S. Multi-Society Task Force on Colorectal Cancer Screening , Am J Gastroenterology 2017; 112:3853-7928. TEST DESCRIPTION: Composite algorithmic analysis of stool DNA-biomarkers with hemoglobin immunoassay. Quantitative values of individual biomarkers are not [...] (Ho Pollard al, N Engl J Med 2014;370(14):1790-2391.) Cologuard may produce a false negative or false positive result (no colorectal cancer or precancerous polyp present at colonoscopy follow up). A negative Cologuard test result does not guarantee the absence of CRC or advanced adenoma (pre-cancer). The current Cologuard screening interval is every 3 years. ([place] [employer] and U.S. Multi-Society Task Force). Cologuard performance data in a 10,000 patient pivotal study using colonoscopy as the reference method can be accessed at the following location: www.[employer]/results. Additional description of the Cologuard test process, warnings and precautions can be found at www.[employer].com. Stool specimen (specimen) 07/28/2024 2:50 PM EST 07/30/2024 11:13 AM EST Fabi Howard MD LAB MOLECULAR DIAGNOSTICS ORDERA BLES Final Result [facility] (CLIA #:[id number]) [address] [place] [address], * Colonoscopy (01/29/2013) Colonoscopy Normal Normal Historical Provider HEALTH MAINTENANCE Final Result from Last 3 Months or Most Recently Relevant to Health Maintenance Insurance [facility] [employer] (O D-SNP) [facility] STANDARD Care Teams Neonatal Nurse Relationship Specialty Start Date End Date Bradly Alcantar CNP [address] [place] [address] PCP - General Family Medicine 03/10/25
--- OUTSIDE RECORDS SUMMARY | 2025-03-10 12:48 | XMS_ITS | Encounter Summary ---
Author Organization [employer] Address [address] [facility] 7t [place] [address] Care Team Providers Care Assembler For Puller Over Hand Name Role Phone Fabi Howard MD Primary Care Provider [phone] Reason for Visit * Reason Onset Date Comments Nurse Triage 03/08/2025 Encounter Details Date Type Department Care Team ([facility] st Contact Info) Description 03/08/2025 Telephone [facility] [address] [place] [address] Fabi Howard MD [address] [place] [phone] Nurse Triage Social History Tobacco Use Types Packs/Day Years Used Date Smoking Tobacco: Never Passive Smoke Exposure: Never Smokeless Tobacco: Never Alcohol Use Standard Drinks/Week Comments Never 0 (1 standard drink = 0.6 oz pur e alcohol) Housing Stability Answer Date Recorded What is your housing situation today? I have kranthi sing 07/07/[address] you li [...] t he electric, gas, oil or water [employer] threatened to shut off services in your [...] AM EDT documented as of this encounter Miscellaneous Notes * Telephone Encounter - Asmita Mayorga LPN - 03/08/2025 4:57 PM EDT Triage call returned with S #[id number] [facility]. Patient reports painful veins around right ankle that have been present for some time now worseningdiscomfort and slight swelling. Patient using compression hose previously and reports that they didnot help much. Has been taking Ibuprofen with slight relief. No open areas reported. Disposition reviewed and patient in agreement with plan. ASK/PCP 03/10/25 at 1045am.Advised to call if unable to keep appt. Reviewed with patient home care recommendations and reasons to call back. Pt verbalized understanding and agrees. Protocol Used: Ankle Swelling (Adult) Protocol-Based Disposition: See in Office or Video Visit within 2 Weeks Positive Triage Question: * Mild swelling of one ankle is a chronic symptom (recurrent or ongoing AND present > 4 weeks) * All higher-acuity triage questions were negative Care Advice Discussed: * Pain Medicines - Ibuprofen for Swelling * Reasons To Call Back - Ankle becomes red or very painful - Ankle becomes very swollen - Fever occurs - You become worse * Telephone Encounter - Stevie Marie - 03/08/2025 4:39 PM EDT Symptom: Foot or Ankle Swelling Outcome: Schedule an urgent appointment (within 1 hour) or talk to a nurse or provider soon Reason: Trouble walking Please contact pt at [phone]. (Peruvian Speaker) documented in this encounter Plan of Treatment Upcoming Encounters Date Type Department Care Team (Late st Contact Info) Description 03/24/2025 1:00 PM EDT Clinical Support [facility] [address] [place] [address] documented as of this encounter Visit Diagnoses Not on filedocumented in this encounter Care Teams Assembler For Puller Over Hand Relationship Specialty Start Date End Date Fabi Howard MD [address] [place] [phone] PCP - General Family Medicine 06/04/12 03/09/25 documented as of this encounter
[2025-03-10 14:58] LABS: Alanine Aminotransferase 17 U/L (0-31); Albumin Level 4.3 g/dL (3.5-5.0); Alkaline Phosphatase 82 U/L (39-117); Anion Gap 9 (12-20); Aspartate Amino Transferase 33 U/L (5-31); Blood Urea Nitrogen 13 mg/dL (9-16); Calcium 9.4 mg/dL (8.4-10.2); Carbon Dioxide 33 mmol/L (22-29); Chloride 106 mmol/L (96-108); Cholesterol 254 mg/dL (<200); Estimated Glomerular Filt Rate 47; HDL Cholesterol 96 mg/dL (>40); Potassium 4.6 mmol/L (3.3-5.1); Sodium 143 mmol/L (135-145); Total Protein 7.5 g/dL (6.5-8.0); Triglycerides 67 mg/dL (<150)
== END 2025-03-10 10:39 | disposition home or self-care (01) ==
LOC: HO.CHCLDS 10:38
PROVIDERS: Visit Provider Student in an Organized Health Care Education/Training Program
DX: I10 Essential (primary) hypertension (principal); E78.00 Pure hypercholesterolemia, unspecified
CPT/HCPCS: 36415; 80048; 80061; 80076